=== PATIENT | female | born 1960 | race Caucasian/White ===

== ENCOUNTER 2018-12-13 11:04 | Day surgery (SDC) | payer BC ==
[~2018-12-13 11:04] MED LIST: Lactated Ringers 1,000 ML IV SCH
--- NOTE | 2018-12-13 12:02 | PCM.PREANE ---
Preanesthetic Assessment - Anesthesia/Transfusion/Family Hx Anesthesia History: Prior Anesthesia Without Reaction Family History of Anesthesia Reaction: No Transfusion History: No Prior Transfusion(s) Intubation History: Unknown - Review of Systems General: No Symptoms Pulmonary: No Symptoms Cardiovascular: No Symptoms Gastrointestinal: No Symptoms, Other (screening, first colonoscopy) Neurological: No Symptoms Other: Reports: None - Physical Assessment NPO Status Date: 12/13/18 NPO Status Time: 06:00 O2 Sat by Pulse Oximetry: 99 Respiratory Rate: 18 Vital Signs: Last Vital Signs Temp 35.3 C 12/13/18 11:49 Pulse 100 12/13/18 11:49 Resp 18 12/13/18 11:49 BP 153/88 H 12/13/18 11:49 Pulse Ox 99 12/13/18 11:49 Height: 1.68 m Weight: 68.492 kg ASA Class: 2 Mental Status: Alert & Oriented x3 Airway Class: Mallampati = 2 Dentition: Reports: Normal Dentition, Vonore(s) (x24 upper front, multiple crowns upper and lower on the back side) Thyro-Mental Finger Breadths: 3 Mouth Opening Finger Breadths: 2 ROM/Head Extension: Limited/Partial Lungs: Clear to Auscultation, Normal Respiratory Effort Cardiovascular: Regular Rate, Regular Rhythm - Allergies Allergies/Adverse Reactions: Allergies Allergy/AdvReac Type Severity Reaction Status Date / Time brazil nuts Allergy "tongue Uncoded 12/08/18 13:13 itches" - Blood Blood Available: No - Anesthesia Plan Pre-Op Medication Ordered: None - Acknowledgements Anesthesia Type Planned: MAC Pt an Appropriate Candidate for the Planned Anesthesia: Yes Alternatives and Risks of Anesthesia Discussed w Pt/Guardian: Yes Pt/Guardian Understands and Agrees with Anesthesia Plan: Yes PreAnesthesia Questionnaire HEENT History: Reports: Other (See Below) Other HEENT History: wears glasses Cardiovascular History: Reports: High Cholesterol, Hypertension Respiratory History: Reports: Other (See Below) Other Respiratory History: "starting of COPD" Gastrointestinal History: Reports: GERD Genitourinary History: Reports: None Musculoskeletal History: Reports: None Neurological History: Reports: None Psychiatric History: Reports: None Endocrine/Metabolic History: Reports: Diabetes, Type II (recently diagnosed, original A1c 11- today glucose level is 126) Hematologic History: Reports: None Immunologic History: Reports: None Oncologic (Cancer) History: Reports: None Dermatologic History: Reports: None - Past Surgical History Head Surgeries/Procedures: Reports: None Female Surgical History: Reports: Breast Biopsy - SUBSTANCE USE Smoking Status *Q: Current Every Day Smoker (about 1 ppd) Tobacco Use Within Last Twelve Months: Cigarettes Recreational Drug Use History: No - HOME MEDS Home Medications: Home Meds Aspirin [Adult Aspirin] 81 mg PO DAILY 12/08/18 [History] Calcium Carbonate [Calcium] 1 tab PO DAILY 12/08/18 [History] Empagliflozin [Jardiance] 10 mg PO DAILY 12/08/18 [History] Lansoprazole [Prevacid] 30 mg PO DAILY 12/08/18 [History] Lisinopril 10 mg PO DAILY 12/08/18 [History] Lysine HCl [l-Lysine] 500 mg PO ASDIRECTED PRN 12/08/18 [History] metFORMIN HCl [Metformin HCl] 100 mg PO BID 12/08/18 [History] - CURRENT (IN HOUSE) MEDS Current Meds: Current Medications Lactated Ringer's (Ringers, Lactated) 1,000 mls @ 125 mls/hr IV ASDIRECTED SUKHJINDER Last Admin: 12/13/18 11:45 Dose: 125 mls/hr
[2018-12-13] MEDS ORDERED: fentaNYL 100 MCG/2 ML SDV ONE (12:40)
[2018-12-13] MEDS ORDERED: Lidocaine 2% 5 ML SDV ONE (12:40)
[2018-12-13] MEDS ORDERED: Midazolam 1 MG/ML 2 ML SDV ONE (12:40)
[2018-12-13] MEDS ORDERED: Propofol 200 MG/20 ML SDV ONE ×3 (12:41→14:28)
--- NOTE | 2018-12-13 13:52 | PCM.OPNOTE ---
- General Post-Op/Procedure Note Date of Surgery/Procedure: 12/13/18 Operative Procedure(s): Colonoscopy Pre Op Diagnosis: Family history of colon cancer. Family history of colon polyps. Post-Op Diagnosis: No evidence of neoplasia Anesthesia Technique: MAC (ASA II) Primary Surgeon: Kodak Coker Condition: Good Free Text/Narrative:: DICTATION [id number] CPT CODE 90348
[2018-12-13] MEDS ORDERED: Lactated Ringers 1,000 ML IV SCH (14:00)
--- NOTE | 2018-12-13 15:52 | OR ---
SURGEON: Kodak Coker M.D. DATE OF PROCEDURE: 12/13/2018 OPERATION PERFORMED: Colonoscopy. ANESTHESIA: MAC. ASA CLASSIFICATION: II. PREOPERATIVE DIAGNOSES: 1. Family history of colon cancer. 2. Family history of colon polyps. POSTOPERATIVE DIAGNOSIS: No evidence of neoplasia. DESCRIPTION OF PROCEDURE: The patient was taken to the endoscopy room and positioned on the endoscopy table in the left lateral decubitus position. Time-out was called for appropriate identification of the patient and procedure. Monitored anesthesia care was provided. The colonoscope was inserted into the rectum and advanced with minimal difficulty to the cecum where the colonoscope was retroflexed to visualize the ascending colon from below. The colonoscope was then straightened and slowly withdrawn. The cecum, ascending colon, hepatic flexure, transverse colon, splenic flexure, descending colon, sigmoid colon, and rectum were very well visualized. No tumors, polyps, diverticula, or angiodysplastic changes were noted anywhere in the lower gastrointestinal tract. Once the colonoscope was withdrawn to the rectum, it was retroflexed to visualize the anal orifice from above. Again, no tumors or polyps were seen and there were no acute hemorrhoidal changes. The colonoscope was then straightened, the rectum aspirated, and the colonoscope removed. The patient tolerated the procedure well and was taken to recovery room in stable condition. LASHON QUILES /[id number]
== END 2018-12-13 14:38 | disposition home or self-care (01) ==
LOC: MW.SDS 11:04
PROVIDERS: ATTEND Surgery
DX: Z12.11 Encounter for screening for malignant neoplasm of colon (principal); E11.9 Type 2 diabetes mellitus without complications; I10 Essential (primary) hypertension; E78.00 Pure hypercholesterolemia, unspecified; F17.210 Nicotine dependence, cigarettes, uncomplicated; Z79.82 Long term (current) use of aspirin; Z79.84 Long term (current) use of oral hypoglycemic drugs; Z79.899 Other long term (current) drug therapy; Z80.0 Family history of malignant neoplasm of digestive organs; Z83.71 Family history of colonic polyps
CPT/HCPCS: 45378; 82962; J2001; J2250; J2704; J3010; J7120